=== PATIENT | male | born 1990 | race Caucasian/White ===

== ENCOUNTER 2023-04-24 21:19 | Emergency (ER) | payer BC, OTHER ==
[2023-04-24 21:35] VITALS: BP 138/82; PULSE 78; RESP 16; TEMP 99.4; BMI 26.2
[2023-04-24] MEDS ORDERED: AZITHROMYCIN 500 MG TABLET PO ONE (21:57)
[2023-04-24] MEDS ORDERED: AZITHROMYCIN 250 MG TABLET ONE (22:02)
== END 2023-04-24 22:58 | disposition home or self-care (01) ==
LOC: FER 21:19
DX: R10.30 Lower abdominal pain, unspecified (principal); R30.0 Dysuria
CPT/HCPCS: 36415; 81003; 81015; 87086; 87491; 87591; 99284-25

== ENCOUNTER 2023-07-31 11:24 | Emergency (ER) | payer OTHER ==
[2023-07-31 11:32] VITALS: BP 157/84; PULSE 77; RESP 18; TEMP 98.5; BMI 26.2
[2023-07-31] MEDS ORDERED: SODIUM CHLORIDE 1,000 ML IV STA (12:31)
[2023-07-31] MEDS ORDERED: MECLIZINE HCL 25 MG TABLET (FP) PO ONE (12:31)
[2023-07-31] MEDS ORDERED: MECLIZINE HCL 25 MG TABLET (FP) ONE (12:48)
[2023-07-31 12:55] LABS: BASO % 0.3 % (0-2.0); EOS % 0.9 % (0-4.5); HEMATOCRIT 44.5 % (35.4-49); HEMOGLOBIN 15.2 GM/dL (11.7-16.9); LYMPH % 14.2 % (8-40); MCH 30.7 pg (25.7-33.7); MCHC 34.2 g/dl (32.0-35.9); MEAN CELL VOLUME 89.7 fl (80-96); MEAN PLT VOLUME 7.1 fl (7.5-11.1); MONO % 7.2 % (3.8-10.2); NEUT % 77.4 % (42.8-82.8); PLATELET COUNT 245 10^3/uL (134-434); RBC 4.96 M/mm3 (4.00-5.60); RDW 12.9 % (11.9-15.9)
[2023-07-31 12:56] LABS: PH,URINE 7.5 (5.0-8.0); URINE APPEARANCE CLEAR; URINE BILIRUBIN NEGATIVE (NEGATIVE); URINE COLOR YELLOW; URINE GLUCOSE (UA) NEGATIVE (NEGATIVE); URINE KETONE NEGATIVE (NEGATIVE); URINE LEUK ESTERASE NEGATIVE (NEGATIVE); URINE NITRITE NEGATIVE (NEGATIVE); URINE PROTEIN NEGATIVE (NEGATIVE); URINE UROBILINOGEN 0.2 mg/dL (0.2-1.0)
[2023-07-31 13:07] LABS: POTASSIUM 4.3 mmol/L (3.5-5.1)
[2023-07-31 13:10] LABS: CALCIUM 9.2 mg/dL (8.5-10.1)
[2023-07-31 13:11] LABS: ALBUMIN 4.5 g/dl (3.4-5.0); BLOOD UREA NITROGEN 15.7 mg/dL (7-18)
[2023-07-31 13:14] LABS: CREATININE 1.2 mg/dL (0.55-1.3)
[2023-07-31 13:15] LABS: TOT PROT 8.1 g/dl (6.4-8.2)
[2023-07-31 13:16] LABS: BILIRUBIN,TOTAL 1.3 mg/dL (0.2-1)
== END 2023-07-31 15:01 | disposition home or self-care (01) ==
LOC: JER 11:24
PROC: 3E0337Z Introduction of Electrolytic and Water Balance Substance into Peripheral Vein, Percutaneous Approach (ICD-10-PCS; principal; 2023-07-31)
DX: R06.02 Shortness of breath (principal); R42 Dizziness and giddiness; R05.9 Cough, unspecified; B34.9 Viral infection, unspecified; Z20.822 Contact with and (suspected) exposure to COVID-19
CPT/HCPCS: 0241U-QW; 36415; 71046-TC-FY; 80053; 81003; 83735; 85025; 93005; 93010; 99285-25

== ENCOUNTER 2023-11-30 21:03 | Emergency (ER) | payer OTHER ==
[2023-11-30 21:09] VITALS: BP 108/65; PULSE 71; RESP 16; TEMP 98.9; BMI 26.2
[2023-11-30] MEDS ORDERED: BACITRACIN ZINC 15 GM TUBE TOPICAL OINTMENT ONE (21:58)
[2023-11-30] MEDS ORDERED: CEPHALEXIN MONOHYDRATE 500 MG CAPSULE (UD) ONE (21:59)
[2023-11-30] MEDS ORDERED: KETOROLAC TROMETHAMINE 30 MG/1 ML VIAL ONE (21:59)
[2023-11-30] MEDS: BACITRACIN 0.9 GM PACKET TP ONE (22:05)
[2023-11-30] MEDS: CEPHALEXIN MONOHYDRATE 500 MG CAPSULE (UD) PO ONE (22:05)
[2023-11-30] MEDS: KETOROLAC TROMETHAMINE 30 MG/1 ML VIAL IM ONE (22:05)
== END 2023-11-30 22:20 | disposition home or self-care (01) ==
LOC: JERFT 21:03
PROC: 3E0233Z Introduction of Anti-inflammatory into Muscle, Percutaneous Approach (ICD-10-PCS; principal; 2023-11-30)
DX: S61.431A Puncture wound without foreign body of right hand, initial encounter (principal); W26.8XXA Contact with other sharp object(s), not elsewhere classified, initial encounter; Y99.0 Civilian activity done for income or pay
CPT/HCPCS: 99284-25